=== PATIENT | male | born 1950 | race Caucasian/White ===

== ENCOUNTER 2018-06-24 08:54 | Emergency (ER) | payer OTHER ==
[2018-06-24] MEDS ORDERED: NS 0.9% 1000 ML* 1,000 ML IV ONE (09:17)
[2018-06-24] MEDS ORDERED: Ketorolac INJ* 30 MG/ML 1 ML VIAL IV ONE (09:17)
[2018-06-24] MEDS ORDERED: Ondansetron INJ* 2 MG/ML VIAL IV ONE (09:19)
[2018-06-24 09:33] LABS: ABS Basophils 0 10^3/ul (0-0.2); ABS Eosinophils 0 10^3/ul (0-0.6); ABS Lymphocytes 0.9 10^3/ul (1.0-4.8); ABS Monocytes 0.7 10^3/ul (0-0.8); ABS Neutrophils 12.1 10^3/ul (1.5-7.7); ABS Nucleated RBC 0 10^3/ul; Eosinophil % 0.2 % (0-6); Hematocrit 47 % (42-52); Hemoglobin 16.3 g/dl (14.0-18.0); Lymphocyte % 6.7 % (25-47); Mean Corpuscular HGB Conc 35 g/dl (31-36); Mean Corpuscular Hemoglobin 31 pg (27-31); Mean Corpuscular Volume 89 fL (80-94); Mean Platelet Volume 8.7 um3 (7.4-10.4); Nucleated Red Blood Cells % 0.1; Platelet Count 174 10^3/ul (150-450); Red Blood Count 5.34 10^6/ul (4.00-5.40); Red Cell Distribution Width 13 % (10.5-15); White Blood Count 13.9 10^3/ul (3.5-10.8)
[2018-06-24 09:53] LABS: EGFR Non-African American 51.8 (>60)
--- NOTE | 2018-06-24 09:55 | RAD ---
CLINICAL HISTORY: back pain - flank pain COMPARISON: None TECHNIQUE: Multiple contiguous axial CT scans were obtained of the abdomen and pelvis, without intravenous contrast enhancement. Coronal and sagittal multiplanar reformations are submitted for review. Oral contrast was not administered. FINDINGS: Evaluation is limited due to the lack of intravenous contrast. This limits evaluation of the solid organs and vasculature. LUNG BASES: The lung bases are clear. LIVER: There are low-attenuation lesions of the right lobe of the liver along the capsule suggestive of cysts versus hemangiomas. BILE DUCTS: There is no intrahepatic or extrahepatic biliary dilatation. GALLBLADDER: The gallbladder is normal, without pericholecystic inflammatory change. PANCREAS: The pancreas is normal, without mass or ductal dilatation. SPLEEN: Normal in size and appearance. UPPER GI TRACT: Evaluation of the gastrointestinal tract is limited by incomplete gastric distention. The upper GI tract is unremarkable. SMALL BOWEL AND MESENTERY: The small bowel is normal in contour, course, and caliber. There is no obstruction or dilatation. COLON: The colon is normal in contour, course, caliber. There is no pericolonic inflammatory change. ADRENALS: Normal bilaterally. KIDNEYS: There is a 0.6 x 0.3 cm calculus of the right UVJ with moderate pelvocaliectasis and hydroureter. There are punctate nonobstructing left renal calyceal stones. BLADDER: Negative noted above, there is a right UVJ calculus. PELVIC ORGANS: The prostate is diffusely enlarged. The seminal vesicles are symmetric. AORTA: The aorta is normal. IVC: Unremarkable LYMPH NODES: There is no lymphadenopathy by size criteria. ABDOMINAL WALL: There is a fat-containing right inguinal hernia. There is postsurgical change to the left inguinal region. BONES AND SOFT TISSUES: Degenerative changes are noted most pronounced at L4-L5 and L5-S1. OTHER: None IMPRESSION: BILATERAL NEPHROLITHIASIS INCLUDING A 0.6 CM RIGHT UVJ CALCULUS WITH RIGHT-SIDED HYDRONEPHROSIS.
--- OUTSIDE RECORDS SUMMARY | 2018-06-24 09:57 | XMS REPORT ---
:1950 External Reference #:[id number] Author Organization [facility] Address [address] [place] [address] Phone [phone] Care Team Providers Name Role Phone Shan Somers MD Care Team Information Visual Education Director Unavailable Shan Somers MD Primary Care Physician Unavailable Payers Type Date Identification Payment Subscriber Numbers Provider Health Maintenance Effective: Policy Number: [employer] Juan Hewitt (O) 09/17/2016 [id number] o Jonathan PayID: [id number] [address] [place] [address] Problems Description No Information Family History Date Family Member(s) Problem(s) Comments Text Input dad macular degeneration, colon polyps age 90mom well2 sisters , 1 brother Social History Type Date Description Comments Cigarette Use Nonsmoker ETOH Use Currently consumes alcohol Recreational Drug Use Current Drug User rare marijuana Daily Caffeine Consumes on average 1 cup of coffee per day Allergies, Adverse Reactions, Alerts Date Description Reaction Status Severity Comments 03/17/2014 NKDA active Medications Medication Date Status Form Strength Qnty SIG Indications Ordering Provider Nystatin-Triam 06/20/ Active Ointment 304444-2.1 15gm apply to B37.2 Muriel Marshall cinolone 2018 Unit/GM-% affected Luiz, skin on FERRY HAND groin twice daily for 7-10 days Ginseng 00/00/ Active Capsules daily Unknown 0000 Viagra 0000/ Active Tablets 50mg take 1 Unknown 0000 tablet by mouth 1 hour prior to sexual relations. max 1 tablet in 24 hours Vitamin C 00/00/ Active Tablets daily Unknown 0000 Dha 00/00/ Active Capsules daily Unknown 0000 Flax Seed Oil 0000/ Active Capsules daily Unknown 0000 Borage Oil / Active Capsules daily Unknown 0000 Multivitamin 00/ Active Tablets once a week Unknown Adult 0000 Vitamin K2 / Active Capsules every three Unknown 0000 days Ginkgo Biloba / Active Capsules daily Unknown 0000 No Active 01/26/ Hx Unknown Medications 2015 - 2016 No Active Hx Unknown Medications 2014 - 2014 Azithromycin 07/26/ Hx Tablets 250mg 6tabs take 2 J20.9 Dominique 2015 - tablets by Sj, 01/26/ mouth today [employer] SUPER[employer]OR 2016 then take 1 tablet daily for next 4 days Proair HFA 07/26/ Hx Aerosol 108(90Base 1unit 2 puffs J20.9 Dominique 2014 - ) mcg/Act s every 4 Sj, 01/26/ hours as [employer] 2016 needed No Active 03/17/ Hx Unknown Medications 2013 - 2013 Doxycycline 03/17/ Hx Capsules 100mg 20cap 1 po bid Debbie Hyclate 2013 - s [facility], 03/27/ [facility] 2013 Acyclovir 03/17/ Hx Ointment 5% 1tube apply 4-5 x Debbie 2013 - a day for [facility], 03/17/ 4-5 days at [facility] 2013 each outbreak Viagra 03/17/ Hx Tablets 50mg 9tabs 1/2 -1 tab Debbie 2013 - 1/2 hr prior [facility], 07/26/ to [facility] 2014 intercourse Acyclovir 03/17/ Hx Tablets 400mg 30tab 1 po tid x 5 Debbie 2013 - s days with [facility], 07/26/ each [facility] 2015 outbreak Z-Pack 1unit as directed Shan Edawrds 2006 - s Yonis, 02/26/ M.DDivya 2006 Avelox 02/06/ Hx Tablets 400mg 7tabs 1 PO qd Shan Edwards 2006 - Yonis, 02/14/ M.D. 2006 Gentamycin 11/16/ Hx Bottle One one gtt to Jesi Giles Solution 2005 - effected eye von 02/06/ q4hr until Kirt, 2005 clear M.D. Zovirax 08/04/ Hx 15gm apply 4-5 Shan Edwards Ointment 2004 - times per Breiman, 04/02/ day M.D. 2007 Clotrimazole/B 08/04/ Hx 15mg apply bid to Jesi etamethasone 2004 - affected von 02/06/ areas Felten, 2005 M.D. Zithromax 02/05/ Hx 250mg 6unit 2 Tabs Day 1 Damon Dominguez 2003 - s Cristóbal, 02/11/ M.D. 2002 1 Tab qd Days 2 Thru 5 Zovirax 02/12/ Hx 15gm apply bid Damon Dominguez 2001 - Cristóbal, 02/05/ M.D. 2002 Denavir 04/18/ Hx 1Tube as Directed Damon Dominguez 1999 - Cristóbal, 02/12/ M.D. 2001 Augmentin 11/08/ Hx 500mg 12uni 1 PO bid Damon Dominguez 1999 - ts Cristóbal, 11/17/ M.D. 1999 Beconase Nasal Hx 3unit 1 Braggs bid Damon Dominguez Inhaler 1998 - s Cristóbal, 02/05/ M.D. 2002 Anusol HC Supp 08/19/ Hx 12uni 1 Supp bid Damon Dominguez 1997 - ts [place], 10/18/ M.D. 1998 Immunizations CPT Code Status Date Vaccine Lot # [id number] Given 06/29/2017 Pneumococcal Conjugate Vacc-13 [id number] Given 06/29/2017 High-Dose, Influenza Virus Vacccine-fluzone 65 and [id number] older 23195 Given 10/06/2013 DO Not Use Split Influenza Virus Vaccine 54096 Given 08/02/2012 DO Not Use Split Influenza Virus Vaccine 18033 Given 08/29/2011 DO Not Use Split Influenza Virus Vaccine Vital Signs Date Vital Result Comment 06/20/2018 BP Systolic 118 mmHg BP Diastolic 78 mmHg Heart Rate 68 /min Body Temperature 98.2 F Respiratory Rate 16 /min Height 73.5 inches 6'1.50" Weight 193.00 lb BMI (Body Mass Index) 25.1 kg/m2 02/04/2018 BP Systolic 138 mmHg BP Diastolic 72 mmHg Heart Rate 68 /min Body Temperature 97.7 F Respiratory Rate 16 /min Height 73.5 inches 6'1.50" Weight 191.25 lb BMI (Body Mass Index) 24.9 kg/m2 08/29/2017 BP Systolic 128 mmHg BP Diastolic 92 mmHg Heart Rate 72 /min Body Temperature 97.5 F Height 73.5 inches 6'1.50" Weight 186.00 lb BMI (Body Mass Index) 24.2 kg/m2 06/29/2017 BP Systolic 122 mmHg BP Diastolic 78 mmHg Heart Rate 72 /min Body Temperature 98.1 F Respiratory Rate 16 /min Height 73.5 inches 6'1.50" Weight 178.38 lb BMI (Body Mass Index) 23.2 kg/m2 02/27/2017 BP Systolic 142 mmHg BP Diastolic 94 mmHg Heart Rate 72 /min Body Temperature 98.1 F Respiratory Rate 16 /min Height 74 inches 6'2" Weight 187.50 lb BMI (Body Mass Index) 24.1 kg/m2 01/27/2016 BP Systolic 112 mmHg BP Diastolic 60 mmHg Heart Rate 68 /min Body Temperature 98.1 F Respiratory Rate 16 /min Height 74 inches 6'2" Weight 206.00 lb BMI (Body Mass Index) 26.4 kg/m2 07/26/2015 BP Systolic 120 mmHg BP Diastolic 70 mmHg Heart Rate 68 /min Body Temperature 98.8 F Respiratory Rate 18 /min Height 74 inches 6'2" Weight 200.00 lb BMI (Body Mass Index) 25.7 kg/m2 03/17/2014 BP Systolic 112 mmHg BP Diastolic 82 mmHg Heart Rate 84 /min Body Temperature 97.5 F Height 74 inches 6'2" Weight 194.50 lb BMI (Body Mass Index) 25.0 kg/m2 04/02/2007 BP Systolic 114 mmHg BP Diastolic 78 mmHg Heart Rate 78 /min Body Temperature 98.8 F Height 74 inches 6'2" Weight 194.00 lb BMI (Body Mass Index) 24.9 kg/m2 02/06/2006 BP Systolic 120 mmHg BP Diastolic 66 mmHg Heart Rate 84 /min Body Temperature 99.9 F Height 74 inches 6'2" Weight 191.00 lb BMI (Body Mass Index) 24.5 kg/m2 11/16/2004 Body Temperature 97.8 F Height 74 inches 6'2" 08/04/2004 BP Systolic 130 mmHg BP Diastolic 70 mmHg Heart Rate 80 /min Height 74 inches 6'2" Weight 198.00 lb BMI (Body Mass Index) 25.4 kg/m2 02/05/2003 BP Systolic 112 mmHg BP Diastolic 80 mmHg Heart Rate 80 /min Height 74 inches 6'2" Weight 195.00 lb BMI (Body Mass Index) 25.0 kg/m2 03/01/2001 BP Systolic 130 mmHg BP Diastolic 80 mmHg Heart Rate 72 /min Height 74 inches 6'2" Weight 193.00 lb BMI (Body Mass Index) 24.8 kg/m2 01/22/2001 BP Systolic 130 mmHg BP Diastolic 70 mmHg Body Temperature 98.3 F Height 74 inches 6'2" Weight 198.00 lb BMI (Body Mass Index) 25.4 kg/m2 11/08/1999 BP Systolic 120 mmHg LA SM Cuff BP Diastolic 74 mmHg LA SM Cuff Body Temperature 97.7 F Weight 197.00 lb 08/19/1998 BP Systolic 134 mmHg LA SM Cuff BP Diastolic 80 mmHg LA SM Cuff Weight 190.00 lb 05/19/1997 BP Systolic 120 mmHg BP Diastolic 86 mmHg Weight 190.00 lb Results Test Date Test Result H/L Range Note Comprehensive Metabolic Prof 06/29/2017 Sodium 141 mEq/L 134-149 Potassium 4.2 mEq/L 3.6-5.5 Chloride 104 mEq/L 94-112 Carbon Dioxide 25 mEq/L 21-32 Glucose 92 mg/dL 70-105 BUN 13 mg/dL 6-26 Creatinine 0.9 mg/dL 0.6-1.4 BUN/Creat Ratio 14.4 CALC 8.0-36.0 Calcium 9.8 mg/dL 8.6-10.2 Total Protein 7.1 g/dL 6.4-8.3 Albumin 4.3 g/dL 3.8-5.5 Globulin 2.8 g/dL 2.0-4.8 A/G Ratio 1.5 CALC 0.6-2.3 Alk. Phosphatase 60 U/L 22-95 Alt (SGPT) 16 U/L 7-35 Ast (Sgot) 19 U/L 5-34 Total Bilirubin 0.8 mg/dL 0.2-1.3 GFR Non- >60 ml/min/1.73m^ >=60 GFR >60 ml/min/1.73m^ >=60 Lipid Profile 06/29/2017 Cholesterol 195 mg/dL 120-200 Triglycerides 119 mg/dL 30-200 HDL Cholesterol 62 mg/dL 30-70 LDL (Calculated) 109 CALC 0-129 VLDL Cholesterol 24 mg/dL 0-50 HDL Risk Factor 3.1 CALC 0.0-4.4 Laboratory test finding 06/29/2017 HCV AB non-reactive non-reactive CBC Electronic ([facility]) 06/29/2017 WBC 6.2 3.6-9.6 RBC 5.17 3.90-5.70 Hemoglobin (Fma/CMC/CTX) 16.2 g/dL 12.1 - 17.2 Hematocrit (Fma/CMC/CTX) 47.6 % 36.1 - 50.3 Platelets 210 10^3/ul 150-400 Lymph% 31.1 % 17.0-48.0 Mixed% 5.9 Neutrophils % 63.0 Mean Corpuscular Vol 92 82.2-97.4 Mean Corpuscular Hemoglobin 31.3 27.6-33.3 Mean Corpuscular Hemo Concen 34.0 32.0-36.0 RDW 12.5 11.6-13.7 Mean Platelet Volume 7.0 5.5-11.0 Ua - Micro ([facility]) 02/27/2017 Appearance clear Color yellow Glucose, Urine (a/CMC/CTX) - Bilirubin - Ketones - SP Grav 1.020 Blood trace (lysed) PH 6.5 Protein - Urobil 0.2 Nitrite - Leukocytes (Fma/CMC/Centrex) - Hyaline - /Lpf Granular - /Lpf WBC ([facility]) 0-1 RBC 5-10 Mucus sm amt /Lpf Epith - /Lpf Bacteria rare /Hpf Amorphous - /Lpf Crystals, Fluid (Fma/CMC/CTX) - Laboratory test finding 02/27/2017 PSA 1.2 ng/mL 0.0-4.0 Ua - Micro ([facility]) 04/15/2007 Appearance CLEAR Color YELLOW Glucose NEG Bilirubin NEG Ketones NEG SP Grav 1.010 Blood TRACE-LYSED PH 5.5 Protein NEG Urobil 0.2 Nitrite NEG Leukocytes (Fma/CMC/[facility]rex) TRACE Hyaline - /Lpf Granular - /Lpf WBC (a,[facility]rex) 1-3 RBC 20-25 Mucus - /Lpf Epith RARE /Lpf Bacteria TR /Hpf Amorphous - /Lpf Crystals, Fluid (Fma/CMC/CTX) - Z#Comments - Laboratory test finding 04/02/2007 Urine Culture (a/CMC) NEGATIVE Ua - Micro ([facility]) 04/02/2007 Appearance CLOUDY Color LT YELLOW Glucose NEG Bilirubin NEG Ketones NEG SP Grav 1.010 Blood LARGE PH 6.0 Protein SSA 1+ Urobil 0.2 Nitrite NEG Leukocytes (a/CMC/[facility]rex) TRACE Hyaline - /Lpf Granular - /Lpf WBC ([facility]) 2-3 RBC >100 Mucus -- /Lpf Epith RARE /Lpf Bacteria TRACE /Hpf Amorphous - /Lpf Crystals, Fluid (a/CMC/CTX) - Z#Comments - CBC Electronic ([facility]) 02/17/2003 WBC 4.5 3.6-9.6 Lymphocytes 28.5 % 20.5 - 51.1 Monocytes 7.5 % 1.7-9.3 Granulocytes 64.0 % 42.2 - 75.2 Lymphocytes 1.3 10^3/uL 0.7 - 4.9 Monocytes 0.3 10^3/uL 0.1 - 0.9 Granulocytes 2.9 10^3/uL 1.5 - 7.2 RBC 5.21 3.90-5.70 Hemoglobin (a/CMC/CTX) 16.0 g/dL 12.1 - 17.2 Hematocrit (a/CMC/CTX) 46.0 % 36.1 - 50.3 Mean Corpuscular Vol 88.4 82.2-97.4 Mean Corpuscular Hemaglobin 30.7 27.6-33.3 Mean Corpuscular Hemo Concen 34.8 33.0-34.8 RDW 12.3 11.6-13.7 Platelets 225. 10^3/ul 150-400 Mean Platelet Volume 8.5 7.4-10.4 Comp Metabolic ([facility]) 02/17/2003 Glucose, Serum (a/CMC/CTX) 109 mg/dL 70 -118 BUN (a/CMC/[facility]rex) 16 mg/dL 7-26 Creatinine (a/CMC/CTX) 0.8 mg/dL 0.6-1.4 BUN/Creatinin Ratio 18.8 8.0-36 Sodium 143 134-149 Potassium 4.3 3.6-5.5 Chloride 104 mEq/L 94-112 Co2 26 21-32 Calcium (a/CMC/Centrex) 9.1 mg/dL 8.6-10.0 Total Protein 7.0 g/dL 6.3-8.1 Albumin ([facility]) 4.1 3.8-5.5 Globulin 2.8 2.0-4.8 A/G Ratio (Fma/CMC/[facility]rex) 1.5 0.6-2.2 Alkaline Phosphatase (F/C/CTX) 65 U/L 22-95 Alt (SGPT) 16 10-40 Ast (Sgot) (Fma/CMC/[facility]rex) 17 U/mL 5-34 Bilirubin, Total 0.9 mg/dL 0.2-1.3 Lipid Profile ([facility]) 02/17/2003 Cholesterol 230 mg/dL High 120-200 Triglyceride 64 mg/dL 30-200 HDL-Chol 67 30-70 LDL-Calculated (Fma/CMC) 123 CALC 0-129 VLDL 13 0-50 HDL Risk Factor ([facility]) 3.0 CALC Low 4.2-7.0 Laboratory test finding 03/05/2001 PSA 0.7 ng/ml 0 - 4 1 Lipid Profile ([facility]) 03/05/2001 Cholesterol 206 mg/dL High 140-200 Triglyceride 119 mg/dL 30-150 VLDL 24 0-50 LDL-Calculated 119 0-160 HDL-Chol 63 35-85 Laboratory test finding 03/05/2001 Glucose 106 mg/dL 70 - 118 1 . RESULTS OBTAINED USING BLANK MEIA METHODOLOGY. SERUM PSA RESULTS SHOULD BE USED ONLY IN CONJUNCTION WITH INFORMATION AVAILABLE FROM THE CLINICAL EVALUATION OF THE PATIENT AND OTHER DIAGNOSTIC PROCEDURES. . RESULTS OBTAINED USING BLANK MEIA METHODOLOGY. SERUM PSA RESULTS SHOULD BE USED ONLY IN CONJUNCTION WITH INFORMATION AVAILABLE FROM THE CLINICAL EVALUATION OF THE PATIENT AND OTHER DIAGNOSTIC PROCEDURES. Procedures Date CPT Code Description Status 03/15/2015 Colonoscopy Completed 02/15/2005 Colonoscopy Completed 09/14/1998 52980 Sigmoidoscopy Diagnostic Completed Encounters Type Date Location Provider CPT E/M Dx Office Visit 02/04/2018 1:10p Main Office Shan Somers 75444 K40.90 M.D. Office Visit 08/29/2017 10:10a Main Office Shan Smoers 84877 K40.90 M.D. Office Visit 02/27/2017 2:20p [facility] Shan Somers 59735 N40.1 M.D. Office Visit 01/27/2016 3:00p [place] [address] M67.844 Office Visit 07/26/2015 12:30p Main Office CHRIS Castaneda 64579 J20.9 Office Visit 03/17/2014 9:00a [facility] Debbie Clarke, 18861 464.00 Young-Ladan V77.91 054.19 302.72 Office Visit 04/02/2007 2:00p [facility] Shan Somers M.D. 88054 599.7 Office Visit 02/06/2006 4:10p [facility] Shan Somers M.D. 55049 466.0 Office Visit 11/16/2004 4:00p Main Office Jesi Pat, 14261 372.00 M.D. Office Visit 08/04/2004 8:20p Main Office Jesi Pat, 65040 692.9 M.D. Office Visit 02/05/2003 1:40p Main Office Damon Ambrocio M.D. 70968 466.0 272.4 Office Visit 03/01/2001 4:10p Main Office Damon Ambrocio M.D. 09509 Office Visit 01/22/2001 12:20p Main Office Damon Ambrocio M.D. 94703 Plan of Care 06/20/2018 - Muriel Dee, NPB37.2 Candidiasis of skin and nailNew Medication:Nystatin-Triamcinolone 620928-4.1 Unit/GM-%Comments:I expect your rash to improve slowly over the next week or so. If you have new or worsening symptoms, please come back.Your skin tags are likely from the irritation and surgery. They do not look like the result of a skin virus (such as HPV or molluscum contagiosum).AllComments:1. Patient has been queried about patient's goals/preferences and functional/lifestyle goals at relevant visits. If relevant, describe: Has been discussed, noted above2. Treatment goals as explainedto the patient: see above3. Are there barriers to meeting treatment goals? Yes If Yes, please describe: Barriers include possible insurance limits, disease process, and difficulty with lifestyle changes4. Self- Management goals as described to the patient: Yes, see above As always, we strongly encourage a healthy diet and making physical activity a part of your every day life. If you have questions about how or where to start, please contact the office.
[2018-06-24 11:16] VITALS: BP 114/65
--- NOTE | 2018-06-24 11:20 | ED ---
Abdominal Pain/Male - HPI Summary HPI Summary: Patient is a 68-year-old otherwise healthy male, presenting to the ED with right -sided flank pain over the course of 2 weeks which has been intermittent, severe at times and mild at times. Endorses history of a left-sided inguinal hernia repair 5 weeks ago and states he has had no complications since that time. He is endorsing mild tenderness diffusely to the bilateral lower quadrants. Last bowel movement 2 days ago. Denies any urinary urgency, frequency, burning with urination or obstructive symptoms. Denies any fevers, sweats, chills. He states he has been otherwise healthy. No history of kidney stones. Abdominal surgeries include left-sided inguinal hernia repair 5 weeks ago as well as right-sided inguinal hernia repair 23 years ago. Denies any fevers, sweats, chills. Endorses one episode of vomiting this afternoon. He states this has since resolved. On arrival into the ED he feels well and endorses pain a 0/10. - History of Current Complaint Chief Complaint: EDFlankPain Stated Complaint: BACK/FLANK PAIN Time Seen by Provider: 06/24/18 08:56 Hx Obtained From: Patient Onset/Duration: Gradual Onset Timing: Constant Severity Initially: Moderate Severity Currently: Moderate Pain Intensity: 2 Pain Scale Used: 0-10 Numeric Location: Flank Aggravating Factor(s): Nothing Alleviating Factor(s): Nothing Associated Signs And Symptoms: Positive: Urinary Symptoms, Nausea, Vomiting PMH/Surg Hx/FS Hx/Imm Hx Previously Healthy: Yes - Surgical History Surgery Procedure, Year, and Place: hernia repair - Immunization History Hx Pertussis Vaccination: No Immunizations Up to Date: Yes Infectious Disease History: No Infectious Disease History: Denies: Traveled Outside the [place] in Last 30 Days - Social History Occupation: Employed Full-time Lives: With Family Alcohol Use: Occasionally Hx Substance Use: Yes Substance Use Type: Reports: Marijuana Hx Tobacco Use: No Review of Systems Constitutional: Negative Negative: Fever, Chills, Fatigue, Skin Diaphoresis Negative: Palpitations, Chest Pain Negative: Shortness Of Breath, Cough Positive: Abdominal Pain - left sided flank pain and diffuse lower abdominal tenderness, Vomiting, Nausea. Negative: Diarrhea Genitourinary: Negative Positive: no symptoms reported, see HPI Negative: Arthralgia, Myalgia Negative: Rash, Bruising Negative: Headache, Weakness, Paresthesia, Numbness, Syncope Psychological: Normal All Other Systems Reviewed And Are Negative: Yes Physical Exam Triage Information Reviewed: Yes Vital Signs On Initial Exam: Initial Vitals Temp Pulse Resp BP Pulse Ox 98.1 F 68 18 161/82 97 06/24/18 09:17 18 09:17 10 09:17 06/24/18 09:17 06/24/18 09:17 Vital Signs Reviewed: Yes Appearance: Positive: Well-Appearing, Well-Nourished Skin: Positive: Warm, Skin Color Reflects Adequate Perfusion Head/Face: Positive: Temporal Artery Tenderness Eyes: Positive: EOMI, ALY, Conjunctiva Clear Neck: Positive: Supple, No Lymphadenopathy Respiratory/Lung Sounds: Positive: Clear to Auscultation, Breath Sounds Present Cardiovascular: Positive: RRR, Pulses are Symmetrical in both Upper and Lower Extremities Abdomen Description: Positive: Soft, CVA Tenderness (L), Other: - left sided flank pain and diffuse lower abdominal tenderness Musculoskeletal: Positive: Normal, Strength/ROM Intact Neurological: Positive: Sensory/Motor Intact, Speech Normal Psychiatric: Positive: Normal, Affect/Mood Appropriate AVPU Assessment: Alert Diagnostics - Vital Signs Vital Signs Temp Pulse Resp BP Pulse Ox 06/24/18 09:17 98.1 F 68 18 161/82 97 - Laboratory Lab Results: Lab Results 06/24/18 06/24/18 06/24/18 Range/Units 09:27 09:27 09:27 WBC 13.9 H (3.5-10.8) 10^3/ul RBC 5.34 (4.00-5.40) 10^6/ul Hgb 16.3 (14.0-18.0) g/dl Hct 47 (42-52) % MCV 89 (80-94) fL MCH 31 (27-31) pg MCHC 35 (31-36) g/dl RDW 13 (10.5-15) % Plt Count 174 (150-450) 10^3/ul MPV 8.7 (7.4-10.4) um3 Neut % (Auto) 87.4 H (38-83) % Lymph % (Auto) 6.7 L (25-47) % [place] % (Auto) 5.4 (0-7) % Eos % (Auto) 0.2 (0-6) % Baso % (Auto) 0.3 (0-2) % Absolute Neuts (auto) 12.1 H (1.5-7.7) 10^3/ul Absolute Lymphs (auto) 0.9 L (1.0-4.8) 10^3/ul Absolute Monos (auto) 0.7 (0-0.8) 10^3/ul Absolute Eos (auto) 0 (0-0.6) 10^3/ul Absolute Basos (auto) 0 (0-0.2) 10^3/ul Absolute Nucleated RBC 0 10^3/ul Nucleated RBC % 0.1 Sodium 139 (135-145) mmol/L Potassium 3.8 (3.5-5.0) mmol/L Chloride 104 (101-111) mmol/L Carbon Dioxide 25 (22-32) mmol/L Anion Gap 10 (2-11) mmol/L BUN 14 (6-24) mg/dL Creatinine 1.37 H (0.67-1.17) mg/dL Est GFR ( Amer) 62.7 (>60) Est GFR (Non-Af Amer) 51.8 (>60) BUN/Creatinine Ratio 10.2 (8-20) Glucose 137 H (70-100) mg/dL Lactic Acid 1.2 (0.5-2.0) mmol/L Calcium 9.6 (8.6-10.3) mg/dL Magnesium 2.0 (1.9-2.7) mg/dL Total Bilirubin 1.00 (0.2-1.0) mg/dL AST 17 (13-39) U/L ALT 16 (7-52) U/L Alkaline Phosphatase 66 (34-104) U/L Total Creatine Kinase 74 (10-223) U/L C-Reactive Protein 4.88 (<8.01) mg/L Total Protein 6.8 (6.4-8.9) g/dL Albumin 4.1 (3.2-5.2) g/dL Globulin 2.7 (2-4) g/dL Albumin/Globulin Ratio 1.5 (1-3) Lipase 15 (11.0-82.0) U/L Result Diagrams: 06/24/18 09:27 06/24/18 09:27 Lab Statement: Any lab studies that have been ordered have been reviewed, and results considered in the medical decision making process. Abdominal Pain Fem Course/Dx - Course Course Of Treatment: During the course of treatment, the patient's evaluated for possible kidney stone. CT abdomen/pelvis without contrast obtained which shows a 0.6 cm left-sided kidney stone at the UVJ with hydronephrosis. I discussed the results with the patient and as we did not have urology on this date, I believe he is safe to go home at this time with a very close follow-up to urology. He is to call the office upon discharge. He is also given strict return precautions for any worsening pain, fevers, hematuria or any signs of obstructive symptoms. While in the ED he received 30 mg IV Toradol as well as 4 mg IV Zofran. However on arrival he states he is asymptomatic and continues to be asymptomatic upon discharge. He is given a strainer for his urine. Treatment options explained to patient and he understands these. His vital signs are stable, slightly elevated white count makes him a good candidate for outpatient treatment until follow up with urology prescription sent for Toradol and Flomax. - Diagnoses Differential Diagnosis/HQI/PQRI: Renal Colic Provider Diagnoses: Nephrolithiasis Discharge - Sign-Out/Discharge Documenting (check all that apply): Patient Departure - Discharge Plan Condition: Stable Disposition: HOME Prescriptions: Ketorolac TAB * [Toradol TAB *] 10 mg PO Q6H #16 tab Tamsulosin CAP* [Flomax CAP*] 0.4 mg PO DAILY #5 cap Patient Education Materials: Kidney Stones (ED) Referrals: Shan Somers MD [Primary Care Provider] - Jay Boyd MD [Medical Doctor] - Additional Instructions: Please follow up with Dr. Boyd's office Call today for an appt Take flomax once daily until passage of stone Take toradol up to four times daily for discomfort For worsening symptoms, return to the ED! - Billing Disposition and Condition Condition: STABLE Disposition: Home
== END 2018-06-24 11:25 | disposition home or self-care (01) ==
LOC: ED 08:54
DX: N20.0 Calculus of kidney (principal); R10.30 Lower abdominal pain, unspecified; R11.2 Nausea with vomiting, unspecified
CPT/HCPCS: 36415; 74176; 80053; 82550; 83605; 83690; 83735; 85025; 86140; 96361; 96374; 96375; 99282; J1885; J2405

== ENCOUNTER 2018-07-05 10:09 | Day surgery (SDC) | payer OTHER ==
--- NOTE | 2018-07-04 15:18 | HP ---
CC: Dr. Shan Somers * ADMITTING HISTORY AND PHYSICAL: DATE OF ADMISSION: 07/05/18 ADMITTING DIAGNOSES: 1. Calculus, right ureter. 2. Right hydronephrosis. PLANNED PROCEDURE: Right ureteroscopy, possible laser and stent insertion. SURGEON: Dr. Boyd. ADMITTING HISTORY OF PRESENT ILLNESS: Juan Castillo is a 68-year-old gentleman who had initially experienced right flank pain, nausea, and vomiting about 10 to [address] scan had revealed a 6-mm calculus in the distal right ureter. He was initially managed conservatively and has been on Flomax 0.4 mg and has been doing fairly aggressive hydration. In spite of this, he has not been able to pass the calculus and a follow up ultrasound on 07/04/18 revealed persistent 6.2-mm calculus in the right distal ureter with moderate surrounding edema and mild right hydronephrosis. He was given the option of trying to continue conservative management, but would now like to have the stone removed, and is being brought in for right ureteroscopy, possible laser and stent insertion. PAST MEDICAL HISTORY: Essentially unremarkable. Specifically, there is no history of diabetes mellitus or any other major systemic illness. PAST SURGICAL HISTORY: Significant for left inguinal hernia repair done recently in [place] and a prior history of right inguinal hernia repair. MEDICATION ON ADMISSION: Ibuprofen p.r.n. ALLERGIES: No known drug allergies. FAMILY HISTORY: Negative for stones. SOCIAL HISTORY: Smoking history, he is a nonsmoker. REVIEW OF SYSTEMS: He is otherwise in excellent health. He denies any chest pain or shortness of breath. PHYSICAL EXAMINATION GENERAL: Reveals a healthy-appearing, middle-aged gentleman. VITAL SIGNS: Blood pressure is 140/90, pulse 90 per minute regular, temperature 97, oxygen saturation 98% on room air. LUNGS: Clear bilaterally. CARDIOVASCULAR: Regular rate and rhythm. S1, S2. ABDOMEN: Soft with mild right flank tenderness. IMPRESSION: A 68-year-old gentleman with the persistent 6-mm calculus in the distal right ureter with mild right hydronephrosis who has failed conservative treatment measures in an effort to try to promote passage of the calculus. PLAN: Plan is for right ureteroscopy, possible laser and stent insertion. [id number]/[facility] #: [id number] [facility], [place]
[~2018-07-05 10:09] MED LIST: Buffered Lidocaine 0.9% SYRIN* 5 ML/SYR SYRINGE INTRADERM ONE; Dexamethasone IV* 4 MG/ML 1 ML (4 MG) IV SLOW PU ONE; Famotidine IV* 10 MG/ML 2 ML (20 mg) IV ONE; Gentamicin ADULT (*) 160 MG in NS 0.9% 100 ML* 100 ML IVPB ONE
[2018-07-05] MEDS ORDERED: Famotidine IV* 10 MG/ML 2 ML (20 mg) ONE (10:22)
[2018-07-05] MEDS ORDERED: cefTRIAXone(*) 2 GM ADDV.VIAL IVPB ONE (10:22)
[2018-07-05] MEDS ORDERED: Dexamethasone IV* 4 MG/ML 1 ML (4 MG) ONE (10:22)
[2018-07-05] MEDS ORDERED: Buffered Lidocaine 0.9% SYRIN* 5 ML/SYR SYRINGE ONE (10:23)
[2018-07-05] MEDS ORDERED: fentaNYL* 50 MCG/ML 2 ML VIAL (100 MCG VIAL) ONE (10:48)
[2018-07-05] MEDS ORDERED: Propofol* 10 MG/ML 20 ML BTL IV PUSH ONE (11:15)
[2018-07-05] MEDS ORDERED: Iohexol 180 (CONTRAST) 10 ML SDV IV ONE (11:19)
[2018-07-05] MEDS ORDERED: Ketorolac INJ* 30 MG/ML 1 ML VIAL ONE (11:59)
[2018-07-05] MEDS ORDERED: Tamsulosin CAP* 0.4 MG ONE (12:38)
[2018-07-05 13:09] VITALS: BP 134/81
--- NOTE | 2018-07-05 13:10 | RAD ---
CPT II Codes: G9500 INDICATION: Right renal calculi TECHNIQUE: Intraoperative fluoroscopy was provided during retrograde nephrostogram with right ureteral stent placement. FINDINGS: 8 spot films depict a retrograde nephrostogram demonstrates mild right-sided hydronephrosis. The last few pictures depict an anatomically aligned right ureteral stent. Fluoroscopy time: 9 seconds IMPRESSION: As above.
--- NOTE | 2018-07-06 04:45 | OP ---
CC: Dr. Shan Somers * DATE OF OPERATION: 07/05/18 - [facility] DATE OF : 52 SURGEON: Jay Boyd MD ANESTHESIOLOGIST: Dr. Blackwell. ANESTHESIA: General. PRE-OP DIAGNOSES: 1. Right hydronephrosis. 2. Calculus, right ureter. POST-OP DIAGNOSES: 1. Right hydronephrosis. 2. Calculus, right ureter. OPERATIVE PROCEDURE: Cystoscopy, right retrograde pyelogram, right ureteroscopy and stone extraction, and right stent insertion. INDICATIONS: Juan Castillo is a 68-year-old gentleman who has a persistent calculus in the right distal ureter and is being brought in for removal of the same. COMPLICATIONS: None. POSTOPERATIVE CONDITION: Stable. STENT USED: 6-[place] stent right ureter. OPERATIVE FINDINGS: 1. Moderately enlarged prostate. 2. Extensively trabeculated bladder with few small diverticula. 3. 6 to 7-mm calculus impacted at ureterovesical junction with surrounding edema and inflammation. DESCRIPTION OF PROCEDURE: After induction of general anesthesia, the patient was placed in dorsal lithotomy position. Sequential compression devices were in place and functioning. Initial cystoscopy revealed a normal-appearing urethra and moderately enlarged prostate and an extensively trabeculated bladder with few small diverticula. The tip of the calculus could be seen at the ureterovesical junction with considerable surrounding edema and inflammation. A guidewire was introduced and advanced along side the calculus into the proximal collecting system. Next, a 6-[place]ander semi-rigid ureteroscope was introduced and advanced under direct vision. The calculus was engaged using a 3-pronged grasper and was retrieved and sent for analysis. Retrograde pyelogram revealed moderate right hydronephrosis with a dilated, tortuous right proximal and mid ureter. This was straightened and a 6- [place] stent was introduced and positioned under fluoroscopy with good proximal and distal positioning obtained. The bladder was emptied. The patient tolerated the procedure satisfactorily and was transferred back to the recovery area in stable condition. [id number]/[facility] #: [id number] [facility]
== END 2018-07-05 13:39 | disposition home or self-care (01) ==
LOC: OR 10:09
PROVIDERS: ATTEND Urology
DX: N13.2 Hydronephrosis with renal and ureteral calculous obstruction (principal); N40.0 Benign prostatic hyperplasia without lower urinary tract symptoms
CPT/HCPCS: 74420; 82365; 88300; C1876; J0696; J1100; J1580; J1885; J2704; J3010